=== PATIENT | male | born 1955 | race African-American/Black ===

== ENCOUNTER → 2016-07-23 | Outpatient (CLI) | payer MEDICARE, OTHER ==
[~2016-07-23] MED LIST: ADALAT CC60 MG PO; ADALAT CC90 MG PO; ALBUTEROL0.09 MG/A3 IH; APRESOLINE 25MG25 MG PO; ASPI325T6 PO; ASPIRIN 32325 MG/TAB PO; ASPIRIN 81M81 MG/TA2 PO; BLOOD PRESSURE MED; CHOLESTEROL PILL; COZAAR100 MG PO; GLUCOPHAGE XR500 M1 PO; GLUCOPHAGE500 MG/TAB PO; GRALISE600 MG PO; K-DUR 2020 MEQ PO; LEVOXYL0.025 MG PO; LIPITOR20 MG PO; LOPRESSOR 225 MG/TAB PO; METFORMIN1000 MG PO; MEVACOR40 MG PO; MILK OF MA400 MG/52 PO; NEURONTIN300 MG/CAP PO; NORCO 325 MG-7.1 TAB PO; PERCOCET 325 MG1 TA2 PO; PERCOCET 325 MG1 TA3 PO; PERCOCET 325 MG1 TAB PO; PERCODAN TABL1 UDTAB PO; PREDNISONE20 MG PO; PROCARDIA XL 6060 MG PO; PROCARDIA XL90 MG PO; PROTONIX 40MG T40 MG PO; ROXICODONE 55 MG/TAB PO; SENOKOT S 50 MG1 TAB PO; SENOKOT8.6 MG PO; SYNTHROID0.125 MG/T PO; TOPROL XL 50MG50 MG PO; TYLENOL 500MG500 MG PO; ULTRAM 50MG TAB50 MG PO; VALIUM 5MG T5 MG/TAB PO; VOLTAREN 75 DR75 MG PO; XARELTO10 MG PO; [UNRECOGNIZED DRUG - OTHER]
== END ==
LOC: MHCPAIN 11:55
DX: G89.29 Other chronic pain (principal); M47.817 Spondylosis without myelopathy or radiculopathy, lumbosacral region; M54.16 Radiculopathy, lumbar region; M53.3 Sacrococcygeal disorders, not elsewhere classified; M70.60 Trochanteric bursitis, unspecified hip; M96.1 Postlaminectomy syndrome, not elsewhere classified
CPT/HCPCS: G0463

== ENCOUNTER → 2016-07-25 | Outpatient (CLI) | payer MEDICARE, OTHER | LOC: MHCPAIN 09:16 | DX: M53.3 Sacrococcygeal disorders, not elsewhere classified (principal); M70.61 Trochanteric bursitis, right hip; Z96.641 Presence of right artificial hip joint | CPT/HCPCS: G0260; J1040; Q9967 ==

== ENCOUNTER → 2016-08-26 | Outpatient (CLI) | payer MEDICARE, OTHER | LOC: MHCPAIN 10:10 | DX: G89.29 Other chronic pain (principal); M47.817 Spondylosis without myelopathy or radiculopathy, lumbosacral region; M54.16 Radiculopathy, lumbar region; M53.3 Sacrococcygeal disorders, not elsewhere classified; M96.1 Postlaminectomy syndrome, not elsewhere classified; Z87.891 Personal history of nicotine dependence | CPT/HCPCS: G0463 ==

== ENCOUNTER 2016-10-03 13:15 | Outpatient (RCR) | payer MEDICARE, OTHER ==
[~2016-10-03 13:15] MED LIST changes: -GRALISE600 MG PO; -PERCOCET 325 MG1 TAB PO
== END 2016-10-10 13:56 | disposition still patient (30) ==
LOC: WSPT 13:15
DX: M54.16 Radiculopathy, lumbar region (principal); M53.3 Sacrococcygeal disorders, not elsewhere classified; M70.60 Trochanteric bursitis, unspecified hip; G89.29 Other chronic pain; M96.1 Postlaminectomy syndrome, not elsewhere classified
CPT/HCPCS: G8978-GP; G8979-GP; G8980-GP

== ENCOUNTER 2016-11-20 20:21 | Emergency (ER) | payer MEDICARE, OTHER ==
[~2016-11-20] VITALS: Ht 185.4 cm; Wt 120.5 kg
[2016-11-20 20:24] VITALS: TEMP 97.6
[2016-11-20] MEDS ORDERED: PERCOCET 325 MG1 TAB PO (20:42)
[2016-11-20] MEDS ORDERED: GRALISE600 MG PO (20:43)
[2016-11-20 21:27] LABS: BASO % 0.3 % (0.0-2.0); EOS # 0.3 (0.0-0.7); EOS % 4.9 % (0-4.0); GRAN # 3.3 (1.4-6.5); GRAN % 52.1 % (42.2-75.2); HEMATOCRIT 42.9 % (42.0-52.0); HEMOGLOBIN 14.3 g/dl (13.5-18.0); LYMPH # 2.2 (1.2-3.4); LYMPH % 34.7 % (20.0-51.0); MEAN CELL VOLUME 83 fl (80.0-100.0); MEAN CORPUSCULAR HEMOGLOBIN 28 pg (27.0-31.0); MEAN CORPUSCULAR HGB CONC 33 g/dl (33.0-37.0); MEAN PLATELET VOLUME 9.1 fl (7.4-10.4); MONO # 0.5 (0.1-0.6); MONO % 7.8 % (1.7-9.3); PLATELET COUNT 276 K/mm3 (130-400); RED BLOOD COUNT 5.16 M/mm3 (4.20-5.60); REDCELL DISTRIBUTION WIDTH-CV 16.3 % (11.5-14.5); WHITE BLOOD COUNT 6.3 K/mm3 (4.8-10.8)
[2016-11-20 21:35] LABS: INR 0.9 (0.8-3.0); PROTHROMBIN TIME 10.2 SECONDS (9.7-12.8)
[2016-11-20 21:37] LABS: PARTIAL THROMBOPLASTIN TIME 32.6 SECONDS (26.0-37.0)
[2016-11-20 21:42] LABS: ADJUSTED CALCIUM 9.3 mg/dL (8.4-10.2); ALANINE AMINOTRANSFERASE 26 U/L (21-72); ALKALINE PHOSPHATASE 73 U/L (50-136); ANION GAP 10 mmol/L (7-16); BILIRUBIN,TOTAL 0.5 mg/dL (0.0-1.0); BLOOD UREA NITROGEN 16 mg/dL (9-20); CALCIUM 9.3 mg/dL (8.4-10.2); CARBON DIOXIDE 28 mmol/L (22-30); CHLORIDE 103 mmol/L (98-107); CREATININE, serum 1.09 mg/dL (0.66-1.25); GLUCOSE 91 mg/dL (74-106); POTASSIUM 3.9 mmol/L (3.4-5.0); SODIUM 141 mmol/L (137-145); TOTAL PROTEIN 6.8 gm/dL (6.4-8.2)
[2016-11-20 21:52] LABS: B-TYPE NATRIURETIC PEPTIDE 95 pg/mL (0-125)
[2016-11-20 21:55] LABS: TROPONIN-I < 0.012 ng/mL (0.000-0.034)
[2016-11-21 00:06] LABS: C-REACTIVE PROTEIN 0.5 mg/dL (0.0-0.9)
[2016-11-21 00:13] LABS: TROPONIN-I < 0.012 ng/mL (0.000-0.034)
[2016-11-21 01:35] VITALS: BP 152/90; PULSE 52
== END 2016-11-21 01:40 | disposition home or self-care (01) ==
LOC: COL.ER 20:21
PROVIDERS: Emergency Medicine; Family Medicine
DX: I10 Essential (primary) hypertension (principal); R51 Headache; R07.9 Chest pain, unspecified; R53.81 Other malaise; E11.9 Type 2 diabetes mellitus without complications; E78.5 Hyperlipidemia, unspecified; E03.9 Hypothyroidism, unspecified; Z79.84 Long term (current) use of oral hypoglycemic drugs; Z87.891 Personal history of nicotine dependence
CPT/HCPCS: J1885; J2270

== ENCOUNTER 2017-04-22 06:40 | Day surgery (SDC) | payer MEDICARE, OTHER ==
[~2017-04-22] VITALS: Ht 185.4 cm; Wt 123.1 kg
[~2017-04-22 06:40] MED LIST changes: +GRALISE600 MG PO; +PERCOCET 325 MG1 TAB PO
[2017-04-22 07:01] VITALS: BP 124/87; PULSE 66; TEMP 98.1
[2017-04-22] MEDS ORDERED: ASPIRIN 81M81 MG/TA2 PO (07:26)
[2017-04-22] MEDS ORDERED: RESTORIL30 MG PO (07:27)
[2017-04-22] MEDS ORDERED: LEXAPRO 5MG5 MG PO (07:27)
[2017-04-22] MEDS ORDERED: IMITREX50 MG PO (07:27)
[2017-04-22] MEDS ORDERED: NEOMYCIN/POLY B10 M1 OT (07:28)
[2017-04-22] MEDS ORDERED: APRESOLINE 25MG25 MG PO (07:29)
[2017-04-22] MEDS ORDERED: DIOVAN 160MG160 MG PO (07:29)
[2017-04-22 08:25] VITALS: BP 122/88; PULSE 59
[2017-04-22 08:40] VITALS: BP 119/85; PULSE 59
[2017-04-22 08:55] VITALS: BP 129/87; PULSE 55
[2017-04-22 09:10] VITALS: BP 127/88; PULSE 55
== END 2017-04-22 10:05 | disposition home or self-care (01) ==
LOC: SDCO 06:40
DX: K21.0 Gastro-esophageal reflux disease with esophagitis (principal); K29.30 Chronic superficial gastritis without bleeding; K29.60 Other gastritis without bleeding; K29.80 Duodenitis without bleeding; K57.30 Diverticulosis of large intestine without perforation or abscess without bleeding; I10 Essential (primary) hypertension; Z79.82 Long term (current) use of aspirin; G47.33 Obstructive sleep apnea (adult) (pediatric); Z86.018 Personal history of other benign neoplasm; E03.9 Hypothyroidism, unspecified; E11.9 Type 2 diabetes mellitus without complications; I27.20 Pulmonary hypertension, unspecified; E78.00 Pure hypercholesterolemia, unspecified; J45.909 Unspecified asthma, uncomplicated; Z96.643 Presence of artificial hip joint, bilateral; Z80.9 Family history of malignant neoplasm, unspecified; Z80.6 Family history of leukemia; Z96.652 Presence of left artificial knee joint; Z87.891 Personal history of nicotine dependence; M19.90 Unspecified osteoarthritis, unspecified site; G90.9 Disorder of the autonomic nervous system, unspecified
CPT/HCPCS: OP; J2704; J7120

== ENCOUNTER → 2017-07-29 | Outpatient (CLI) | payer MEDICARE, OTHER ==
[~2017-07-29] MED LIST changes: +DIOVAN 160MG160 MG PO; +IMITREX50 MG PO; +LEXAPRO 5MG5 MG PO; +NEOMYCIN/POLY B10 M1 OT; +RESTORIL30 MG PO
== END ==
LOC: MHCPAIN 13:18
DX: G89.29 Other chronic pain (principal); M47.817 Spondylosis without myelopathy or radiculopathy, lumbosacral region; M54.16 Radiculopathy, lumbar region; M53.3 Sacrococcygeal disorders, not elsewhere classified; M96.1 Postlaminectomy syndrome, not elsewhere classified; M48.061 Spinal stenosis, lumbar region without neurogenic claudication; M70.60 Trochanteric bursitis, unspecified hip
CPT/HCPCS: G0463

== ENCOUNTER → 2017-08-14 | Outpatient (CLI) | payer MEDICARE, OTHER | LOC: MHCPAIN 10:02 | DX: M47.817 Spondylosis without myelopathy or radiculopathy, lumbosacral region (principal); M48.061 Spinal stenosis, lumbar region without neurogenic claudication; M96.1 Postlaminectomy syndrome, not elsewhere classified | CPT/HCPCS: J1100; J2250; J3010; Q9967 ==

== ENCOUNTER → 2017-09-01 | Outpatient (CLI) | payer MEDICARE, OTHER | LOC: MHCPAIN 11:23 | DX: G89.29 Other chronic pain (principal); M47.817 Spondylosis without myelopathy or radiculopathy, lumbosacral region; M54.16 Radiculopathy, lumbar region; M53.3 Sacrococcygeal disorders, not elsewhere classified; M96.1 Postlaminectomy syndrome, not elsewhere classified | CPT/HCPCS: G0463 ==

== ENCOUNTER → 2017-09-18 | Outpatient (CLI) | payer MEDICARE, OTHER | LOC: MHCPAIN 08:35 | DX: M47.817 Spondylosis without myelopathy or radiculopathy, lumbosacral region (principal); M48.061 Spinal stenosis, lumbar region without neurogenic claudication | CPT/HCPCS: J1040; J2250; J3010; Q9967 ==

== ENCOUNTER → 2017-09-24 | Outpatient (CLI) | payer MEDICARE, OTHER | LOC: COL.RAD 13:17 | DX: Z09 Encounter for follow-up examination after completed treatment for conditions other than malignant neoplasm (principal); Z98.1 Arthrodesis status; Z87.39 Personal history of other diseases of the musculoskeletal system and connective tissue ==

== ENCOUNTER → 2017-09-24 | Outpatient (CLI) | payer MEDICARE, OTHER | LOC: MHCPAIN 15:38 | DX: G89.29 Other chronic pain (principal); M47.817 Spondylosis without myelopathy or radiculopathy, lumbosacral region; M54.16 Radiculopathy, lumbar region; M53.3 Sacrococcygeal disorders, not elsewhere classified; M96.1 Postlaminectomy syndrome, not elsewhere classified; M50.90 Cervical disc disorder, unspecified, unspecified cervical region; M54.12 Radiculopathy, cervical region | CPT/HCPCS: G0463 ==

== ENCOUNTER → 2017-10-02 | Outpatient (CLI) | payer MEDICARE, OTHER ==
[~2017-10-02] VITALS: Ht 185.4 cm; Wt 127.3 kg
[~2017-10-02] MED LIST changes: +AVAPRO300 M1 PO; +LIORESAL 1010 MG/TAB PO; +PROAIR HFA0.09 MG/AC IH; +SYNTHROID0.1 MG/TAB PO
[2017-10-02 11:56] VITALS: BP 150/98; PULSE 61
[2017-10-02 13:15] VITALS: BP 120/86; PULSE 59
[2017-10-02 13:25] VITALS: BP 120/80; PULSE 61
[2017-10-02 13:45] VITALS: BP 128/88; PULSE 58
== END ==
LOC: COL.RAD 11:28
DX: M50.222 Other cervical disc displacement at C5-C6 level (principal); M48.02 Spinal stenosis, cervical region; M25.78 Osteophyte, vertebrae; Z98.890 Other specified postprocedural states; Z79.84 Long term (current) use of oral hypoglycemic drugs; Z79.82 Long term (current) use of aspirin; Z79.899 Other long term (current) drug therapy; Z87.891 Personal history of nicotine dependence
CPT/HCPCS: A9585; G9654; J2704; J7120

== ENCOUNTER → 2017-10-09 | Outpatient (CLI) | payer MEDICARE, OTHER | LOC: MHCPAIN 07:35 | DX: M54.12 Radiculopathy, cervical region (principal) | CPT/HCPCS: J1100; J2250; J3010; Q9967 ==

== ENCOUNTER → 2017-10-22 | Outpatient (CLI) | payer MEDICARE, OTHER | LOC: MHCPAIN 10:13 | DX: G89.29 Other chronic pain (principal); M50.90 Cervical disc disorder, unspecified, unspecified cervical region; M54.12 Radiculopathy, cervical region; M54.81 Occipital neuralgia; M96.1 Postlaminectomy syndrome, not elsewhere classified | CPT/HCPCS: G0463 ==

== ENCOUNTER → 2017-10-27 | Outpatient (CLI) | payer MEDICARE, OTHER | LOC: MHCPAIN 12:47 | DX: M54.12 Radiculopathy, cervical region (principal); M50.90 Cervical disc disorder, unspecified, unspecified cervical region | CPT/HCPCS: J1100; J2250; J3010; Q9967 ==

== ENCOUNTER → 2017-12-25 | Emergency (ER) | payer MEDICARE, OTHER | LOC: COL.ER 11:31 | DX: Z72.9 Problem related to lifestyle, unspecified (principal) ==

== ENCOUNTER → 2018-03-18 | Outpatient (CLI) | payer MEDICARE, OTHER | LOC: MHCPAIN 09:00 | DX: G89.29 Other chronic pain (principal); M54.12 Radiculopathy, cervical region; M54.81 Occipital neuralgia; R51 Headache; M47.812 Spondylosis without myelopathy or radiculopathy, cervical region | CPT/HCPCS: G0463 ==

== ENCOUNTER 2018-04-22 17:56 | Emergency (ER) | payer MEDICARE, OTHER ==
[~2018-04-22] VITALS: Ht 182.9 cm; Wt 122.7 kg
[2018-04-22 18:00] VITALS: TEMP 97.9
[2018-04-22 18:17] LABS: BASO % 0.6 % (0.0-2.0); EOS # 0.3 (0.0-0.7); EOS % 4.3 % (0-4.0); GRAN # 3.7 (1.4-6.5); GRAN % 51.8 % (42.2-75.2); LYMPH # 2.4 (1.2-3.4); LYMPH % 33.1 % (20.0-51.0); MEAN CELL VOLUME 82 fl (80.0-100.0); MEAN CORPUSCULAR HEMOGLOBIN 28 pg (27.0-31.0); MEAN CORPUSCULAR HGB CONC 34 g/dl (33.0-37.0); MEAN PLATELET VOLUME 9.1 fl (7.4-10.4); MONO # 0.7 (0.1-0.6); MONO % 10.1 % (1.7-9.3); PLATELET COUNT 309 K/mm3 (130-400); RED BLOOD COUNT 5.71 M/mm3 (4.20-5.60); REDCELL DISTRIBUTION WIDTH-CV 16.2 % (11.5-14.5)
[2018-04-22 18:27] LABS: ALANINE AMINOTRANSFERASE 25 U/L (21-72); ALBUMIN 4.5 gm/dL (3.5-5.0); ALKALINE PHOSPHATASE 87 U/L (50-136); ANION GAP 9 mmol/L (7-16); AST,SGOT 26 U/L (15-37); BILIRUBIN,TOTAL 0.4 mg/dL (0.0-1.0); BLOOD UREA NITROGEN 18 mg/dL (9-20); CALCIUM 9.6 mg/dL (8.4-10.2); CARBON DIOXIDE 29 mmol/L (22-30); CHLORIDE 107 mmol/L (98-107); CREATININE, serum 1.36 mg/dL (0.66-1.25); GLUCOSE 81 mg/dL (74-106); LIPASE 199 U/L (23-300); POTASSIUM 3.8 mmol/L (3.4-5.0); SODIUM 144 mmol/L (137-145); TOTAL PROTEIN 7.7 gm/dL (6.4-8.2)
[2018-04-22 18:41] LABS: TROPONIN-I < 0.012 ng/mL (0.000-0.035)
[2018-04-22] MEDS ORDERED: MEDROL 4MG DOSPA4 MG PO (21:17)
[2018-04-22 22:30] VITALS: BP 138/76; PULSE 67
== END 2018-04-22 22:37 | disposition home or self-care (01) ==
LOC: COL.ER 17:56
PROVIDERS: Emergency Medicine
DX: R07.89 Other chest pain (principal); E11.9 Type 2 diabetes mellitus without complications; I10 Essential (primary) hypertension; E03.9 Hypothyroidism, unspecified; Z87.891 Personal history of nicotine dependence
CPT/HCPCS: J7512; Q9967

== ENCOUNTER 2018-08-12 13:49 | Emergency (ER) | payer MEDICARE, OTHER ==
[~2018-08-12] VITALS: Ht 182.9 cm; Wt 124.5 kg
[2018-08-12 13:49] VITALS: TEMP 97.4
[2018-08-12 14:55] LABS: BASO % 0.5 % (0.0-2.0); EOS # 0.3 (0.0-0.7); EOS % 4.6 % (0-4.0); GRAN # 2.8 (1.4-6.5); GRAN % 51.9 % (42.2-75.2); HEMATOCRIT 47.3 % (42.0-52.0); HEMOGLOBIN 16.1 g/dl (13.5-18.0); LYMPH # 1.9 (1.2-3.4); LYMPH % 33.8 % (20.0-51.0); MEAN CELL VOLUME 83 fl (80.0-100.0); MEAN CORPUSCULAR HEMOGLOBIN 28 pg (27.0-31.0); MEAN CORPUSCULAR HGB CONC 34 g/dl (33.0-37.0); MEAN PLATELET VOLUME 9.2 fl (7.4-10.4); MONO # 0.5 (0.1-0.6); PLATELET COUNT 298 K/mm3 (130-400); RED BLOOD COUNT 5.72 M/mm3 (4.20-5.60); REDCELL DISTRIBUTION WIDTH-CV 16.3 % (11.5-14.5)
[2018-08-12 14:59] LABS: PROTHROMBIN TIME 11.7 SECONDS (9.7-12.8)
[2018-08-12 15:05] LABS: ALANINE AMINOTRANSFERASE 12 U/L (21-72); ALBUMIN 4.3 gm/dL (3.5-5.0); ALKALINE PHOSPHATASE 82 U/L (50-136); ANION GAP 11 mmol/L (7-16); AST,SGOT 24 U/L (15-37); BILIRUBIN,TOTAL 0.5 mg/dL (0.0-1.0); BLOOD UREA NITROGEN 18 mg/dL (9-20); CALCIUM 9.5 mg/dL (8.4-10.2); CARBON DIOXIDE 27 mmol/L (22-30); CHLORIDE 106 mmol/L (98-107); CREATININE, serum 1.35 (0.66-1.25); GLUCOSE 144 mg/dL (74-106); MAGNESIUM 2.1 mg/dL (1.6-2.3); POTASSIUM 3.5 mmol/L (3.4-5.0); SODIUM 143 mmol/L (137-145); TOTAL PROTEIN 7.4 gm/dL (6.4-8.2)
[2018-08-12 15:16] LABS: TROPONIN-I < 0.012 ng/mL (0.000-0.035)
[2018-08-12] MEDS ORDERED: LEXAPRO 5MG5 MG PO (16:05)
[2018-08-12 22:32] VITALS: BP 146/97; PULSE 60
== END 2018-08-12 22:16 | disposition home or self-care (01) ==
LOC: COL.ER 13:49
PROVIDERS: Emergency Medicine
DX: R55 Syncope and collapse (principal); I10 Essential (primary) hypertension; E78.5 Hyperlipidemia, unspecified; E03.9 Hypothyroidism, unspecified; E11.43 Type 2 diabetes mellitus with diabetic autonomic (poly)neuropathy; Z79.82 Long term (current) use of aspirin
CPT/HCPCS: J1170; J3010; J7030

== ENCOUNTER → 2018-08-12 | Outpatient (CLI) | payer MEDICARE, OTHER ==
[~2018-08-12] MED LIST changes: -ADALAT CC60 MG PO; +MEDROL 4MG DOSPA4 MG PO
== END ==
LOC: MHCPAIN 12:53
DX: G89.29 Other chronic pain (principal); M47.817 Spondylosis without myelopathy or radiculopathy, lumbosacral region; M54.16 Radiculopathy, lumbar region; M53.3 Sacrococcygeal disorders, not elsewhere classified; M96.1 Postlaminectomy syndrome, not elsewhere classified
CPT/HCPCS: G0463

== ENCOUNTER → 2018-08-17 | Outpatient (CLI) | payer MEDICARE, OTHER | LOC: MHCPAIN 10:22 | DX: M47.817 Spondylosis without myelopathy or radiculopathy, lumbosacral region (principal); M54.16 Radiculopathy, lumbar region | CPT/HCPCS: J1100; Q9967 ==

== ENCOUNTER 2018-10-14 16:45 | Outpatient (RCR) | payer MEDICARE, OTHER | END 2018-11-24 | disposition still patient (30) | LOC: WSC | DX: M47.817 Spondylosis without myelopathy or radiculopathy, lumbosacral region (principal); M96.1 Postlaminectomy syndrome, not elsewhere classified; M53.3 Sacrococcygeal disorders, not elsewhere classified; M54.16 Radiculopathy, lumbar region; G89.29 Other chronic pain ==

== ENCOUNTER → 2018-11-18 | Outpatient (CLI) | payer MEDICARE, OTHER | LOC: MHCPAIN 12:37 | DX: G89.29 Other chronic pain (principal); M54.12 Radiculopathy, cervical region; M47.812 Spondylosis without myelopathy or radiculopathy, cervical region | CPT/HCPCS: G0463 ==

== ENCOUNTER → 2018-12-16 | Outpatient (CLI) | payer MEDICARE, OTHER | LOC: COL.RAD 12:38 | DX: R13.12 Dysphagia, oropharyngeal phase (principal) ==

== ENCOUNTER → 2019-05-19 | Outpatient (CLI) | payer MEDICARE, OTHER | LOC: MHCPAIN 11:09 | DX: M53.3 Sacrococcygeal disorders, not elsewhere classified (principal); M25.551 Pain in right hip; M96.1 Postlaminectomy syndrome, not elsewhere classified | CPT/HCPCS: G0463 ==

== ENCOUNTER 2020-06-01 17:56 | Emergency (ER) | payer MEDICARE ==
[~2020-06-01] VITALS: Ht 185.4 cm; Wt 121.8 kg
[2020-06-01 18:35] LABS: BASO % 0.6 % (0.0-2.0); EOS # 0.4 (0.0-0.7); EOS % 6.7 % (0-4.0); GRAN # 3.1 (1.4-6.5); GRAN % 49.5 % (42.2-75.2); HEMATOCRIT 45.6 % (42.0-52.0); HEMOGLOBIN 15.1 g/dl (13.5-18.0); LYMPH % 31.9 % (20.0-51.0); MEAN CELL VOLUME 83 fl (80.0-100.0); MEAN CORPUSCULAR HEMOGLOBIN 28 pg (27.0-31.0); MEAN CORPUSCULAR HGB CONC 33 g/dl (33.0-37.0); MEAN PLATELET VOLUME 9.2 fl (7.4-10.4); MONO # 0.7 (0.1-0.6); MONO % 11.1 % (1.7-9.3); PLATELET COUNT 320 K/mm3 (130-400); RED BLOOD COUNT 5.49 M/mm3 (4.20-5.60); REDCELL DISTRIBUTION WIDTH-CV 16.7 % (11.5-14.5)
[2020-06-01 18:43] LABS: ALANINE AMINOTRANSFERASE 20 U/L (4-49); ALBUMIN 4.5 gm/dL (3.5-5.0); ALKALINE PHOSPHATASE 73 U/L (50-136); ANION GAP 9 mmol/L (7-16); AST,SGOT 26 U/L (15-37); BILIRUBIN,TOTAL 0.4 mg/dL (0.0-1.0); BLOOD UREA NITROGEN 16 mg/dL (9-20); CALCIUM 9.1 mg/dL (8.4-10.2); CARBON DIOXIDE 28 mmol/L (22-30); CHLORIDE 107 mmol/L (98-107); CREATININE, serum 1.49 (0.66-1.25); GLUCOSE 81 mg/dL (74-106); LIPASE 49 U/L (23-300); POTASSIUM 3.6 mmol/L (3.4-5.0); SODIUM 144 mmol/L (137-145); TOTAL PROTEIN 7.9 gm/dL (6.4-8.2)
[2020-06-01 18:57] LABS: TROPONIN-I < 0.012 ng/mL (0.000-0.035)
[2020-06-01] MEDS ORDERED: PROCARDIA10 MG PO (19:28)
[2020-06-01] MEDS ORDERED: COZAAR 25MG25 MG/TAB PO (19:29)
[2020-06-01 19:48] LABS: COLLECTION METHOD CLEAN CATCH
[2020-06-01 19:56] LABS: MUCOUS Present /lpf; PH 6 (5-8); SQUAMOUS EPITHELIAL None Seen /hpf; URINE APPEARANCE Clear; URINE BACTERIA None Seen /hpf; URINE BILIRUBIN Negative (NEGATIVE); URINE BLOOD 1+ (NEGATIVE); URINE COLOR Yellow; URINE GLUCOSE Negative (NEGATIVE); URINE KETONE Negative (NEGATIVE); URINE LEUKOCYTE ESTERASE Negative (NEGATIVE); URINE NITRATE Negative (NEGATIVE); URINE PROTEIN(semi-quant) 1+ (NEGATIVE); URINE RBC 0-2 /hpf; URINE UROBILINOGEN Negative (NEGATIVE)
[2020-06-01] MEDS ORDERED: RESTORIL 1515 MG/CAP PO (21:01)
[2020-06-01 23:20] VITALS: BP 174/94; PULSE 66
== END 2020-06-01 23:30 | disposition home or self-care (01) ==
LOC: COL.ER 17:56
PROVIDERS: Nurse Practitioner Primary Care
DX: R07.89 Other chest pain (principal); R05 Cough; I10 Essential (primary) hypertension; J45.909 Unspecified asthma, uncomplicated; E03.9 Hypothyroidism, unspecified; Z87.891 Personal history of nicotine dependence; Z88.5 Allergy status to narcotic agent; Z79.82 Long term (current) use of aspirin; Z79.890 Hormone replacement therapy; Z79.51 Long term (current) use of inhaled steroids
CPT/HCPCS: J7030; Q9967

== ENCOUNTER → 2022-04-08 | Outpatient (CLI) | payer MEDICARE ==
[~2022-04-08] MED LIST changes: +COZAAR 25MG25 MG/TAB PO; +PROCARDIA10 MG PO; +RESTORIL 1515 MG/CAP PO
== END ==
LOC: MHCPAIN 12:37
DX: M47.817 Spondylosis without myelopathy or radiculopathy, lumbosacral region (principal); M96.1 Postlaminectomy syndrome, not elsewhere classified; M54.16 Radiculopathy, lumbar region
CPT/HCPCS: J1100; Q9967

== ENCOUNTER → 2023-05-05 | Outpatient (CLI) | payer MEDICARE ==
[~2023-05-05] VITALS: Ht 182.9 cm; Wt 117.5 kg
[~2023-05-05] MED LIST changes: +Gadoterate 20 ML VIAL IV ONE; +LEXAPRO 10MG10 MG PO; +LR 1,000 ML IV SCH; +SYNTHROID0.088 MG/T PO
[2023-05-05 08:53] VITALS: BP 156/98; PULSE 59; TEMP 97.3
[2023-05-05 10:25] VITALS: BP 131/76; PULSE 55
[2023-05-05 10:40] VITALS: BP 132/80; PULSE 56
[2023-05-05 10:55] VITALS: BP 144/80; PULSE 52
== END ==
LOC: COL.RAD 07:52
DX: C61 Malignant neoplasm of prostate (principal)
CPT/HCPCS: A9575; J2704

== ENCOUNTER 2023-11-21 12:27 | Emergency (ER) | payer MEDICARE ==
[~2023-11-21] VITALS: Ht 182.9 cm; Wt 113.6 kg
[~2023-11-21 12:27] MED LIST changes: -Gadoterate 20 ML VIAL IV ONE; -LR 1,000 ML IV SCH
[2023-11-21 12:34] VITALS: TEMP 97.9
[2023-11-21 13:43] LABS: BASO % 0.6 % (0.0-2.0); EOS # 0.2 K/mm3 (0.0-0.7); EOS % 4.7 % (0.0-4.0); GRAN # 1.4 K/mm3 (1.4-6.5); GRAN % 40.6 % (42.2-75.2); HEMATOCRIT 41.5 % (42.0-52.0); LYMPH # 1.4 K/mm3 (1.2-3.4); LYMPH % 41.1 % (20.0-51.0); MEAN CELL VOLUME 87 fl (80.0-100.0); MEAN CORPUSCULAR HEMOGLOBIN 29 pg (27-31); MEAN CORPUSCULAR HGB CONC 34 g/dl (33.0-37.0); MEAN PLATELET VOLUME 9.4 fl (7.4-10.4); MONO # 0.4 K/mm3 (0.1-0.6); MONO % 12.7 % (1.7-9.3); PLATELET COUNT 303 K/mm3 (130-400); RED BLOOD COUNT 4.79 M/mm3 (4.20-5.60); REDCELL DISTRIBUTION WIDTH-CV 15.4 % (11.5-14.5)
[2023-11-21 14:07] LABS: BILIRUBIN,TOTAL 0.4 mg/dL (0.2-1.2); CALCIUM 9.2 mg/dL (8.4-10.2); CREATININE, serum 1.47 mg/dL (0.72-1.25); POTASSIUM 3.9 mEq/L (3.5-4.5); TOTAL PROTEIN 7.3 g/dl (6.2-8.1)
[2023-11-21 14:13] LABS: TROPONIN-I 0.011 ng/mL (0.00-0.033)
[2023-11-21 15:25] LABS: TSH w REFLEX 4.054 uIU/mL (0.350-4.940)
[2023-11-21] MEDS ORDERED: Acetaminophen 500 MG TAB PO ONE (16:45)
[2023-11-21 19:07] VITALS: BP 167/104; PULSE 62
== END 2023-11-21 19:07 | disposition home or self-care (01) ==
LOC: COL.ER 12:27
PROVIDERS: Emergency Medicine
DX: R20.2 Paresthesia of skin (principal)